=== PATIENT | male | born 1945 | race Caucasian/White ===

== ENCOUNTER 2016-06-12 19:26 | Inpatient (IN) | payer MEDICARE ==
[~2016-06-12] VITALS: Ht 179.1 cm; Wt 51.3 kg
[2016-06-12 21:59] VITALS: BP 104/54; PULSE 88; RESP 24; O2SAT 98
[2016-06-12] MEDS ORDERED: Alum-Mag Hydrox-Simeth 30 mL Suspension PO PRN (22:15)
[2016-06-12] MEDS ORDERED: Ondansetron 2 mg/mL 2 mL Inj IVPUSH PRN (22:15)
[2016-06-12] MEDS ORDERED: Polyethylene Glycol (PEG) 17 Gm Powder PO PRN (22:15)
--- NOTE | 2016-06-12 22:38 | NUR ---
admit note/med rec Pt is admitted to room 3008 around 2119 from [facility] transferred via EMS. Pt is A&Ox3, c/o slight tenderness when his R side was touched; site of his healed shingles. c/o feeling weak and dizzy but better; 2PA to transfer him from [facility] to bed. malnourished and cachectic. last BM was "long time ago, haven't eaten because unable to get food". abdomen is firm and slightly distended. Pt is oriented to room and plan of care; he verbalized understanding. Pt doesn't take any medications Addendum: 06/13/16 at 0555 by HUSSEIN MOORE RN able to tolerate general diet w/o N/V. using urinal in bed. bed alarm on for safety. Hourly rounding. Dr. Smalls was notified of critical lactic levels. 1L NS bolus given.
[2016-06-12 22:47] LABS: BASOPHILS % (AUTO) 0 % (0-3); EOSINOPHILS % (AUTO) 0 % (0-5); MONOCYTES % (AUTO) 6.1 % (4-12); Mean Corpuscular Hemoglobin 21.6 pg (27.0-35.0); Mean Corpuscular Volume 69.2 fL (81-100); NEUTROPHILS % (AUTO) 89.4 % (40-74); Platelet Count 369 bil/L (150-400)
--- NOTE | 2016-06-12 23:56 | PCM.HPMED ---
Subjective Date of Service Jun 12, 2016 Primary Provider: Admitting Physician: Alexys Kang MD Primary Care Physician: Angelita Attending Physician: Alexys Kang MD Admit Status: Direct Admit (from [facility]), Remote Telemetry Chief Complaint: Weakness, dizziness, unintentional weight loss History of Present Illness: Mr. Francis is an extremely pleasant 70-year-old gentleman with a history of tobacco use presented to [facility] via EMS for increasing weakness, dizziness, decreased appetite, and unintentional weight loss. He was found to have an elevated lactic acid, and abnormal findings of hepatic lesions via CT scan. He was transferred to [facility] 06/12/2016 for evaluation and treatment of suspected suspected sepsis, and hepatic malignancy with unknown primary, in addition to his weakness, dizziness, and other constitutional symptoms that are likely related to the finding of his abnormal hepatic imaging. Hospital day 1 Mr. Francis states that he has not received routine medical care in many years, and is unaware of any current medical conditions that he may have. He states he is aware of the abnormal hepatic findings are seen at [facility]. He admits to ongoing tobacco use, of which, he rolls his own cigarettes. He denies any chronic or daily alcohol use, and denies any other substance use. He states that over the recent weeks to couple of months, he has experienced an unintentional weight loss of greater than 30 pounds. He denies any fever or chills, but does report extreme weakness, dizziness, and daily hemoptysis. He states the hemoptysis has been present for the most recent 3 or so years, and it does occur throughout the day, but in small amounts. He describes it as very scant. He denies any associated abdominal pain, diarrhea, constipation, dysuria, hematuria; he does admit to occasional blood in his stool, but denies any antonina blood. He has never had a colonoscopy that he recalls. Based on documentation received from [facility], patient had a lactic acid level of 10, based on the reference range of 0.5-2.2. Lipase was 16, he was noted to be tachycardic with rates between 100-120, initial hemoglobin 9.9, hematocrit 32.1. He was thought to be septic at time of evaluation at [facility], and was given ciprofloxacin, Zosyn, and vancomycin. CT completed at their facility revealed multiple hepatic lesions and hepatomegaly. This report is placed in patient's chart on the floor. He was transferred and arrived to [facility] in stable condition. Review of Systems: Complete ROS obtained; pertinent positives and negatives as noted in history of present illness Allergies Coded Allergies: No Known Allergies (Unverified , 06/12/16) Home Medications Patient denies any home medications, including prescribed or [id number] PMH Patient is unaware of any medical conditions he has; patient has poor outpatient follow-up No known medical conditions that time of admission other than findings from [facility] General Surgical History Denies any history of medical interventions Family History States his mother lived to be elderly age and from what he believed to be natural causes He is unaware of any family history of cancers other than his father whom he believed lung cancer Social History Occupation: retired Hx Alcohol Use: Yes ("beer once in a while 4 months ago"; not a chronic/daily alcohol user) Hx Substance Use: No Hx Tobacco Use: Yes Smoking Status: Current Every Day Smoker (rolls his own cigarettes) Living Arrangement: Alone (independent, local) Exam Vital Signs Vital Sign - Last Date Time Temp Pulse Resp B/P Pulse Ox O2 Delivery O2 Flow Rate FiO2 06/12/16 21:59 36.4 88 24 104/54 98 Room Air Exam General: Frail, cachectic appearing gentleman in no acute distress HEENT: Atraumatic, temporal wasting quite evident, sunken eyes, mucous membranes moist, conjunctival pallor noted Neck: Full range of motion without pain chin to chest, no palpable lymphadenopathy Chest: Frail, rib prominence Cardiac: Tachycardic at time of examination with estimated 100 bpm, no murmurs appreciated Respiratory: Decreased airflow all eng, but without wheezes or coarse sounds appreciated Abdomen: Nondistended, remarkable hepatomegaly appreciated Skin: Healing zoster outbreak of right abdomen along T10 approximate distribution non-erythematous no active lesions; remainder skin warm and dry Extremities: Quite thin, with muscle wasting seen within lower extremities and upper extremities Neuro: Cranial nerves II through XII grossly intact, facial expressions equal and symmetric, speech without slurring Psych: Appropriate mood, affect, and responses to questioning; insight and judgment superficially appear questionable, but patient seemed to be at ease with knowing that he may potentially have a malignancy that is widespread Lab and Diagnostics Result Diagram: 06/12/16223906/12/162239 Assessment & Plan Mr. Francis is an extremely pleasant 70-year-old gentleman with an unknown medical history and a history of tobacco use, that presented to [facility] via EMS for increasing weakness, dizziness, decreased appetite, and unintentional weight loss. He was found to have an elevated lactic acid, and abnormal findings of hepatic lesions via CT scan. He was transferred to [facility] for evaluation and treatment of suspected sepsis, and hepatic malignancy with unknown primary, in addition to his weakness, dizziness, and other constitutional symptoms that are likely related to the finding of his abnormal hepatic imaging. Hospital day 1 Suspected sepsis, acute, present on admission. Under evaluation - Transfer from [facility]; lactic acid 10, heart rate above 100, white count 22.4 - Admit labs: WBC 20.4, lactic acid 4.3; stable vitals with pulse 88 - Treat underlying cause: Suspected infection vs malignancy Multiple hepatic lesions noted on imaging, chronicity unknown, present on admission. Under evaluation - CT from [facility] indicates hepatomegaly with multiple hepatic lesions; report place in chart; palpable on physical examination - Patient is aware that malignancy is on the differential - AFP, cryoglobulin, acute hepatitis panel, HIV ordered and pending - No additional scans ordered at this time - Consideration of GI consultation/and-or oncology and-or palliative care based on lab results and imaging - No consultations or additional scans ordered this time; will await preliminary laboratory results - Uric acid crystals seen in UA, with moderate occult blood Elevated lactic acid, acute, present on admission. Under evaluation - Would be reports lactic acid greater than 10 - Repeat value on admit: 4.3 - DDx: Malignancy, infection; no kidney disease noted at time of admission - Treat underlying cause - Continue fluid resuscitation - Trend Anemia, chronicity unknown, present on admission. Monitor - [facility] labs: Hemoglobin 9.9, hematocrit 32.1 - Admit labs: Hemoglobin 8.0, hematocrit 25.6 - Reduction may be secondary to fluid resuscitation - Holding heparin for prophylaxis at this time secondary to possible bleed - Continue to monitor - Consideration for increased coagulopathy secondary to potential underlying malignancy - We will defer to day team to base decision on anticoagulation for DVT prophylaxis after hemoglobin trending completed Leukocytosis, acute, present on admission. Under evaluation - [place] lab: 22.4 - Admit lab: 20.4 - DDx: Infection, malignancy, stress secondary to weight loss; no reported recent use of steroids - Treat possible underlying etiologies - Trend Hemoptysis, chronic. Presumed stable - Patient reports 3 year history of slight hemoptysis, occurring daily, but scant, in the setting of daily tobacco use - Likely secondary to tobacco use, but may also be secondary to undiagnosed malignancy - Quantiferon ordered to rule out TB - CXR in am - Consider additional scanning/imaging to identify any potential sites of malignancy, such as primary - No additional scans ordered at this time Unintentional weight loss, acute, present on admission. Ongoing - Patient reports unintentional weight loss greater than 30 pounds within recent weeks - Likely secondary to reported decreased appetite in the setting of possible malignancy - Likely contributing to presenting symptoms of weakness and dizziness - Dietary consultation as noted - Consider Marinol Severe protein calorie malnutrition, chronic. Ongoing - On admit: BMI 16 - Patient reports recent weight loss of 30 pounds within recent weeks - Patient reports significant decrease in appetite - Dietary consult placed - Consider palliative care consultation based on imaging and lab/tumor markers Tobacco use, chronic. Ongoing - Patient states he has smoked much of his life, and currently rolls his own cigarettes - Nicotine patch daily - DVT: SCDs; monitoring hemoglobin at this time - GI: PPI - Diet: General with dietary consultation - PRN bowel/fever/antiemetic/pain - CODE STATUS: DNR/DNI Patient status: Due to severity of presenting symptoms, risk of adverse events, and likely course of care, anticipated length of stay is greater than 2 midnights; patient admitted as inpatient status Pain Evaluation: Adequate Pain Control GI Prophylaxis: Proton Pump Inhibitor VTE Prophylaxis: SCDs Resuscitation Status: DNR/DNI:Do Not Resuscitate/Intubate Attending Statement The patient was seen and examined together with house staff on 06/13/2016 and I agree with the history, exam and plan as outlined in the note above. Summer Smalls DO Jun 12, 2016 23:56 Iliana Shannon DO June 23, 2016 05:30
[2016-06-13] VITALS (8 sets, daily range): BP systolic 103–127; BP diastolic 50–71; PULSE 68–91; RESP 22–24; O2SAT 94–97
[2016-06-13] MEDS: 0.9% Sodium Chloride 1,000 ML IV SCH ×4 (00:55→23:16)
[2016-06-13 01:56] LABS: APPEARANCE,URINE CLEAR (CLEAR,HAZY); COLOR,URINE YELLOW (YELLOW); OCCULT BLOOD,URINE MODERATE (NEGATIVE)
[2016-06-13] MEDS ORDERED: 0.9% Sodium Chloride 1,000 ML IV ONE (03:00)
--- NOTE | 2016-06-13 03:14 | PCM.CONPHA ---
Subjective Date of Service: Jun 13, 2016 Requesting Provider: Summer Smalls DO Weakness, dizziness, unintentional weight loss Reason for Pharmacy Consult: Vancomycin Dosing Objective Vital Signs Date Time Temp Pulse Resp B/P Pulse Ox O2 Delivery O2 Flow Rate FiO2 06/13/16 01:18 36.5 83 24 103/50 97 Room Air 06/12/16 21:59 36.4 88 24 104/54 98 Room Air Weight (Kilograms): 51.300 Height (Feet): 5 Height (Inches): 10.50 Test 06/12/16 22:40 06/13/16 01:35 06/13/16 01:55 White Blood Count 20.4th/mm3 (3.8-10.1) Red Blood Count 3.70mil/mm3 (4.40-5.80) Hemoglobin 8.0g/dL (13.8-17.2) Hematocrit 25.6% (41.0-50.0) Mean Corpuscular Volume 69.2fL (81-100) Mean Corpuscular Hemoglobin 21.6pg (27.0-35.0) Mean Corpuscular Hemoglobin Concent 31.3% (32.0-37.0) Red Cell Distribution Width 16.3% (12.3-15.4) Platelet Count 369bil/L (150-400) Neutrophils (%) (Auto) 89.4% (40-74) Lymphocytes (%) (Auto) 4.0% (14-46) Monocytes (%) (Auto) 6.1% (4-12) Eosinophils (%) (Auto) 0% (0-5) Basophils (%) (Auto) 0% (0-3) Sodium Level 133mEq/L (134-144) Potassium Level 3.9mEq/L (3.5-5.2) Chloride Level 95mEq/L (97-108) Carbon Dioxide Level 19mmol/L (18-29) Blood Urea Nitrogen 25mg/dL (8-27) Creatinine 0.94mg/dL (0.76-1.27) Estimat Glomerular Filtration Rate 84mL/min (>59) Glucose Level 86mg/dL (60-99) Calcium Level 7.6mg/dL (8.5-10.1) Urine Color Yellow (YELLOW) Urine Appearance Clear (CLEAR,HAZY) Urine pH 5.0 (5.0-8.0) Urine Specific [place] 1.020 (1.003-1.035) Urine Protein Tracemg/dL (NEG,TRACE) Urine Glucose (UA) Negativemg/dL (NEGATIVE) Urine Ketones Tracemg/dL (NEGATIVE) Urine Occult Blood Moderate (NEGATIVE) Urine Nitrite Negative (NEGATIVE) Urine Bilirubin Negative (NEGATIVE) Urine Urobilinogen 1.0mg/dL (NORMAL) Urine Leukocyte Esterase Negative (NEGATIVE) Urine RBC 0-2/hpf (0-2) Urine WBC 0-5/hpf (0-5) Urine Epithelial Cells Occasional/hpf (NONE-MOD) Urine Crystals Uric acid crystals (NONE Urine Bacteria Few/hpf (NONE-FEW) Urine Hyaline Casts None/lpf (NONE) Urine Granular Casts Rare (NONE SEEN) Urine Waxy Casts None seen (NONE SEEN) Urine Red Blood Cell Casts None seen (NONE SEEN) Urine White Blood Cell Casts None seen (NONE SEEN) Urine Mucus None seen (None Seen) Urine Trichomonas None seen (NONE SEEN) Urine Yeast None (NONE SEEN) Urinalysis Comment None Urine Culture Reflexed Not indicated Lactic Acid Level 4.9mmol/L (0.4-2.0) Assessment/Plan Assessment/Plan A: * Vancomycin dosing for 70 y/o man with suspected sepsis * He was transferred from [facility] where he received ciprofloxacin 400 mg @1720, Zosyn 4500 mg @1703, and vancomycin 1000 mg @1756 * He is being continued on Zosyn and vancomycin * Estimated CrCl for this patient is 53 mL/min (Cockcroft & Gault) * Estimated vancomycin half-life 14 hours and estimated Vd is 36 liters P: * Starting vancomycin 500 mg IV every 12 hours * Target a vancomycin trough range of 15 - 20 mcg/mL * Drawing a trough level prior to the fourth dose Thank you. Pharmacy will continue to follow. Ayesha Gutierrez, PharmD Ayesha Gutierrez Jun 13, 2016 03:14
[2016-06-13 05:50] LABS: BASOPHILS % (AUTO) 0.1 % (0-3); EOSINOPHILS % (AUTO) 0.1 % (0-5); MONOCYTES % (AUTO) 5.6 % (4-12); Mean Corpuscular Hemoglobin 21.9 pg (27.0-35.0); NEUTROPHILS % (AUTO) 87.9 % (40-74); Platelet Count 330 bil/L (150-400)
[2016-06-13 06:29] LABS: Magnesium 2.1 mg/dL (1.6-2.6); Phosphorus 2.4 mg/dL (2.5-4.9)
[2016-06-13] MEDS: Vancomycin Inj 500 MG in 0.9% Sodium Chloride 100 ML IV SCH ×2 (06:29→21:30)
[2016-06-13] MEDS ORDERED: Vancomycin Dose per Pharmacist XX SCH (08:30)
--- NOTE | 2016-06-13 08:37 | PCM.PNMED ---
Subjective Date of Service Jun 13, 2016 Exam Vital Signs Vital Sign - Last Date Time Temp Pulse Resp B/P Pulse Ox O2 Delivery O2 Flow Rate FiO2 06/13/16 06:30 36.5 85 24 118/70 96 Room Air Lab and Diagnostics o/n admission hemotpysis x 3 months, wt loss, liver masses, Cr 1.4, IV contrast at [facility], 125cc/hr NS, tolerated diet, he used DMSO for shingles right T 10 2 weeks ago, ongoing pain, unclear if hemoptypsis is from chronic left nares epistaxix, poor eating, generalized weakness/fatigue on RA NAD A and O x 3 no injected eyes, eating breakfast CTAB RRR right chest wall w/ mild peeling superficial skin, no rash TORREZ no edema Result Diagram: 06/13/1652906/13/16529 Assessment & Plan Mr. Francis is an extremely pleasant 70-year-old gentleman with an unknown medical history and a history of tobacco use, that presented to [facility] via EMS for increasing weakness, dizziness, decreased appetite, and unintentional weight loss. He was found to have an elevated lactic acid, and abnormal findings of hepatic lesions via CT scan. He was transferred to [facility] for evaluation and treatment of suspected sepsis, and hepatic malignancy with unknown primary, in addition to his weakness, dizziness, and other constitutional symptoms that are likely related to the finding of his abnormal hepatic imaging. Suspected sepsis, acute, present on admission. unlikely, SIRS likely, pending CT chest, neg TB int he past, no risk factors. stable - Transfer from [facility]; lactic acid 10, heart rate above 100, white count 22.4 - Admit labs: WBC 20.4, lactic acid 4.3; stable vitals with pulse 88 Multiple hepatic lesions noted on imaging, chronicity unknown, present on admission. Under evaluation - AFP, cryoglobulin, acute hepatitis panel, HIV ordered and pending - No additional scans ordered at this time - Consideration of GI consultation/and-or oncology and-or palliative care based on lab results and imaging - smoker, neg kidney findings on CT IV AP, abnormal right apex lung CXR, pending CT chest Elevated lactic acid, acute, present on admission. Under evaluation - Would be reports lactic acid greater than 10 - Repeat value on admit: 4.3 - DDx: Malignancy, infection; no kidney disease noted at time of admission - Continue fluid resuscitation microcytic Anemia, chronicity unknown, present on admission. Monitor --no fecal blood per patient, retic iron pending - [place] labs: Hemoglobin 9.9, hematocrit 32.1 - Admit labs: Hemoglobin 8.0, hematocrit 25.6 - Reduction may be secondary to fluid resuscitation - Holding heparin for prophylaxis at this time secondary to possible bleed - Consideration for increased coagulopathy secondary to potential underlying malignancy Hemoptysis, chronic vs epistaxis. - Quantiferon ordered to rule out TB Severe protein calorie malnutrition, chronic. Ongoing - On admit: BMI 16 - Patient reports recent weight loss of 30 pounds within recent weeks - Patient reports significant decrease in appetite - Dietary consult placed Tobacco use, chronic. Ongoing - Nicotine patch daily - DVT: SCDs; monitoring hemoglobin at this time - GI: PPI - Diet: General with dietary consultation - PRN bowel/fever/antiemetic/pain - CODE STATUS: DNR/DNI Patient status: Due to severity of presenting symptoms, risk of adverse events, and likely course of care, anticipated length of stay is greater than 2 midnights; patient admitted as inpatient status GI Prophylaxis: Proton Pump Inhibitor VTE Prophylaxis: SCDs VTE Mechanical Devices: Intermittant Pneumatic CD Resuscitation Status: DNR/DNI:Do Not Resuscitate/Intubate Alexys Kang MD Jun 13, 2016 08:09
[2016-06-13 08:55] LABS: Unsaturated Iron Binding 139.1 ug/dL
[2016-06-13] MEDS: Pantoprazole 40 mg ER24 Tablet PO SCH (09:07)
[2016-06-13] MEDS: Piperacillin-Tazo 3.375 Gm Inj 3.375 GM in Dextrose 5% Minibag Plus 50 ML IV SCH ×2 (09:07→16:58)
--- NOTE | 2016-06-13 13:06 | DRSVH ---
PROCEDURE: CT CHEST WITH CONTRAST ([id number]) INDICATIONS: 70 year-old male with liver metastases on recent CT scan, and tobacco use. TECHNIQUE: After the administration of intravenous contrast, 5 mm thick sections acquired from the pulmonary api debbie to the posterior costophrenic angles. 7 mm thick coronal and sagittal MIP reformats were acquire d. For radiation dose reduction, the following was used: automated exposure control, adjustment of mA and/or kV according to patient size. COMPARISON: Outside Film, CT, CT ABD PELVIS WO CON, 06/12/2016, 16:55. FINDINGS: Image quality: Excellent. Lungs and pleura: 2.1 x 1.3 cm lobulated right apical lung mass is present. There is linear lateral r ight upper lobe scarring. There is apical predominant centrilobular emphysema. On axial image 27, 3 mm nodule is present within the right lower lobe. On axial image 28, 3 mm nodule is also present with in the lateral left lower lobe, with eccentric calcification not typical for benign granuloma. Small bibasilar pleural effusions are present; no pneumothorax. Central and peripheral airways are patent and normal in caliber. Mediastinum: Heart size is normal, with trace anterior pericardial effusion. No mediastinal or dale r adenopathy by size criteria. Thoracic aorta and central pulmonary arteries are normal in size. Es ophagus is normal in caliber. No hiatal hernia. Bones and chest wall: No suspicious bony lesions. No vertebral body compression fractures. No axil maximino or supraclavicular adenopathy by size criteria. Thyroid gland is normal in size. Abdomen: Numerous variably sized hepatic hypoenhancing lesions are again noted, causing diffuse liver enlargement. No adrenal nodules. IMPRESSION: 1. 3.5 x 2.1 x 1.3 cm right apical lung mass may be consistent with primary bronchogenic carcinoma ve rsus pulmonary metastasis. 2. Additional scattered less than 5 mm indeterminate nodules in both lower lobes, possibly tiny metas tases versus post inflammatory residua. 3. Apical predominant centrilobular emphysema. 4. Small bibasilar mobile pleural effusions, possibly malignant. 5. Numerous hepatic metastases again noted, of uncertain primary neoplasm. Consider CT or ultrasound-guided liver biopsy for further evaluation. Dictated by: Stephon Poe M.D. on 06/13/2016 at 12:56 Approved by: Stephon Poe M.D. on 06/13/2016 at 13:05
--- NOTE | 2016-06-13 13:17 | NUR ---
Pt off floor for CT chest Transported via around 1250.
--- NOTE | 2016-06-13 15:59 | NUR ---
NUTRITION ASSESSMENT: ASSESS: 70 YO male admitted for sepsis, increased weakness, dizziness, multiple hepatic lesion, currently undergoing workup. Pt also reports decreased appetite with unintentional wt loss of 30 lbs over the past couple weeks. Pt is having CT currently. PMHx: Tobacco use. LABS: Reviewed. Glu 105, Ca 7.5. No alb/PAB available. MEDS: Reviewed. GI: NO BM reported. yet. CURRENT WT: 51.3 kg. UBW: 65 kg. IBW: 76.8 kg. If 30 lbs wt loss accurate, pt with 21% body wt lost. DIET: General. PO intake 100% x 1 meal. EST. NEEDS (Wt GAIN): 9465-2600 kcals (30-40 kcals/kg BW), 95-115 g protein (1.2-1.5 g/kg IBW) NUTRITION DIAGNOSIS: 1.) Unintentional weight loss related to decreased appetite as evidenced by reported significant (21%) body weight lost in a couple weeks. NUTRITION INTERVENTION: 1.) Will add ensure BID between meals to encourage adequate po intake to support wt gain. MONITOR / EVAL: PO intake, weights, labs, nutritional status. Follow per high nutritional risk guidelines.
[2016-06-13] MEDS ORDERED: Vancomycin Inj 1,000 MG in IV Premix 1 EACH IV SCH (18:00)
--- NOTE | 2016-06-13 19:28 | NUR ---
Pain Pt reported sharp abdomen pain of 4/10 on R lateral side. Pain spikes to 8/10 with coughing or deep breathing. Pain is r/t healing of past shingles. MD ordered Gabapentin TID for pain. Pt reports pain is decreased.
[2016-06-14] VITALS (7 sets, daily range): BP systolic 79–123; BP diastolic 51–66; PULSE 73–124; RESP 24–28; O2SAT 77–95
[2016-06-14] MEDS: Piperacillin-Tazo 3.375 Gm Inj 3.375 GM in Dextrose 5% Minibag Plus 50 ML IV SCH ×2 (00:44→09:34)
[2016-06-14] MEDS: 0.9% Sodium Chloride 1,000 ML IV SCH ×2 (00:47→07:32)
--- NOTE | 2016-06-14 00:51 | ABG ---
DateTimeAnalyzed 00:48:00 -_ pH ____7.424 - 7.350 7.450 pCO2 ___31.8__ -mmHg 35.0 45.0 pO2 ___75.9__ -mmHg 69.0 116 HCO3- ___20.4__ -mmol/L 22.0 26.0 ABE ___-3.0__ -mmol/L -2.0 2.0 tHb ____8.4__ -g/dL O2Hb ___93.8__ -% COHb ____1.2__ -% MetHb ____1.0__ -% sO2 ___95.9__ -% 25.0 FIO2 ___50.0__ -% Drawn By AF - Date/Time Notified____ 00:51:00 -_ Notified By AF - B 757 -mmHg tO2 ___11.2__ -Vol% OrderingPhysicianInitials mf - Ghassan test _Positive -
--- NOTE | 2016-06-14 01:11 | PCM.PNMED ---
Subjective Date of Service Jun 14, 2016 Subjective Patient noted to have increasing oxygen demand and tachypnea. He also has persistent elevated Lactic acidosis despite antibiotics and fluids Assessment Likely advanced Sepsis or fluid overload from fluid resuscitations Plan Transfer to [facility] ABG check (note patient is DNR/DNI) consider BIPAP Increasing fluids to NS @ 150 cc/hr Chepe Lynch MD Jun 14, 2016 01:10
--- NOTE | 2016-06-14 01:37 | NUR ---
TRANSFER TO 2013 During routine VS, pt on RA, oxygen saturations 70s, whereas pt was on RA prior w/ good saturations. Pt placed on 5L oxymask to maintain mid 90s. Pt titrated down to 4L, at time of transfer, low 90s, as pt is a smoker, no known diagnosis of COPD. Pt denies any SOB or change in how he feels. RR high 20s. Lactic acid levels have been monitored frequently, most recent drawn at 0020 was 6.5. MD had been notified of change in VS, increasing lactic acid levels, which initiated transfer to 2nd floor. Pt transferred to room 2013 approx 0130, via hospital bed, portable oxygen take and IVF infusing. Pt remained alert and oriented. All pt belongings in room taken w/ pt. Pts chart and drawer medication taken down.
--- NOTE | 2016-06-14 02:00 | NUR ---
Transfer to [facility] Room 2012 Pt arrived to room 2012 in pt's bed from upstairs at approximately 0200. Pt was on 4L oxymask with SpO2 in low 90s and NS running at 100ml/hr. Pt was AOx3 and TORREZ and has no c/o pain at this time. Pt was put on a continuous pulse ox to monitor pt's SpO2 and to titrate supplemental O2 PRN. Pt is currently having a lactic acid drawn Q2H until in the normal range. Last lactic acid was scheduled at 0500 and still awaiting lab results.
[2016-06-14 02:10] LABS: Hepatitis A Antibody IgM Negative (Negative); Hepatitis B Core Antibody IgM Negative (Negative)
[2016-06-14] MEDS ORDERED: Vancomycin Serum Trough XX ONE (05:00)
[2016-06-14 05:30] LABS: BASOPHILS % (AUTO) 0.1 % (0-3); EOSINOPHILS % (AUTO) 0 % (0-5); MONOCYTES % (AUTO) 3.6 % (4-12); Mean Corpuscular Hemoglobin 21.5 pg (27.0-35.0); Mean Corpuscular Volume 69.4 fL (81-100); NEUTROPHILS % (AUTO) 94.2 % (40-74); Platelet Count 190 bil/L (150-400)
[2016-06-14 05:47] LABS: INR 1.19 ratio
[2016-06-14] MEDS ORDERED: Vancomycin Inj 750 MG in 0.9% Sodium Chloride 250 ML IV SCH (06:35)
--- NOTE | 2016-06-14 07:00 | PCM.PHAPRO ---
Progress Date of Service: Jun 14, 2016 Vancomycin dosing by pharmacy for 70 y/o man with suspected sepsis O: * The patient was receiving vancomycin 500 mg IV every 12 hours * Vancomycin level of 7.3 mcg/mL prior to the fourth dose * SCr of 0.76 mg/dL today * Blood cultures pending * MRSA nasal screen negative A: * The vancomycin trough level is below target * SCr has been decreasing and the patient is clearing vancomycin more quickly than originally anticipated P: * Increase vancomycin dose to 750 mg IV every 12 hours * Continue targeting a trough range of 15 - 20 mcg/mL * Drawing another trough level after 3 doses Thank you. Pharmacy will continue to follow. Ayesha Gutierrez, PharmD Ayesha Gutierrez Jun 14, 2016 07:00
--- NOTE | 2016-06-14 07:30 | NUR ---
SPO2 Pt 6 L oxymask SPO2 86% during shift change, increased O2 to 11L oxymask SPO2 93%. Notified
[2016-06-14] MEDS ORDERED: Albuterol-Ipratropium 3 mL Inhalation Solution NEB SCH (08:30)
[2016-06-14] MEDS ORDERED: Furosemide 10 mg/mL 4 mL Inj IVPUSH ONE (08:45)
--- NOTE | 2016-06-14 09:35 | DRSVH ---
PROCEDURE: X-RAY CHEST ONE VIEW, PORTABLE ([id number]) INDICATIONS: hypoxia TECHNIQUE: One view of the chest was acquired. COMPARISON: [facility], CT, CT CHEST W CON, 06/13/2016, 12:38. FINDINGS: Surgical changes and devices: None. Lungs and pleura: No pleural effusions or pneumothorax. Lungs are abnormal with interstitial promin ence and pulmonary hyperexpansion consistent with COPD and long-standing smoking history. A mass les ion identified at the right apex is relatively poorly visualized by this study. It was seen by CT sc anning one day ago.. Mediastinum: Mediastinal contours appear normal. Heart size is normal. Bones and chest wall: No suspicious bony lesions. Overlying soft tissues appear unremarkable. IMPRESSION: COPD, chronic interstitial prominence, long-standing smoking history suspected. A right apex lung mass seen by CT scanning yesterday is quite poorly visualized by this examination due to ov erlap of multiple osseous margins in that area. Please note that small bilateral pleural effusions w ere seen yesterday by CT scanning and not accurately detected by this study today. Dictated by: Jerrod Alcazar M.D. on 06/14/2016 at 9:31 Approved by: Jerrod Alcazar M.D. on 06/14/2016 at 9:34
[2016-06-14] MEDS: Pantoprazole 40 mg ER24 Tablet PO SCH (10:09)
--- NOTE | 2016-06-14 11:39 | NUR ---
Social Work: Note Per EMR review, pt is a 70 year old male admitted for sepsis. Pt is Medicare insurance with [employer] benefits. Pt's listed NOK is a friend, True Calvillo. Pt has . No family listed. Team is attempting to notify pt's NOK. Pt's DD214 ( discharge paperwork) were in belongs. POWER MACHINE OPERATOR spoke with the [facility] who states that this paperwork will be needed by the home and to ensure that it is sent with the pt's belongings. POWER MACHINE OPERATOR notified charge and bedside RN of this and made copies for pt's chart. No further social work needs identified at this time; POWER MACHINE OPERATOR will assist further if requested by team. NAN Godwin
--- NOTE | 2016-06-14 11:40 | NUR ---
Status Pt AOx3 this morning sharing about his father, stated he has no family now, noted on white board name of friend and phone number. Administered last medication at 1010, SPO2 93% 11L oxymask, pt stated he wasn't hungry for breakfast. Pt reading book. At approximately 1045 technical support specialist reported pt HR dropped from 113 to 50. Ran to pt room. Pt unresponsive, no pulse. Pt DNR/DNI. Pt at 1050. MD in room.
--- NOTE | 2016-06-14 18:03 | PCM.DC.MEX ---
Discharge Summary Date of Service Jun 14, 2016 Dates of Hospitalization Date of Hospital Admission Jun 12, 2016 at 21:43 Date of Expiration: Jun 14, 2016 Time of Expiration: 10:50 Providers: Admitting Physician: Alexys Kang MD Primary Care Physician: Angelita Attending Physician: Alexys Kang MD Diagnosis at Time of Cardiac arrest; acute respiratory failure with hypoxia; sepsis likely secondary to pneumonia; Metastatic carcinoma uncertain origin Procedures XRay, CTs & MRIs PROCEDURE: CT CHEST WITH CONTRAST ([id number]) IMPRESSION: 1. 3.5 x 2.1 x 1.3 cm right apical lung mass may be consistent with primary bronchogenic carcinoma versus pulmonary metastasis. 2. Additional scattered less than 5 mm indeterminate nodules in both lower lobes , possibly tiny metastases versus post inflammatory residua. 3. Apical predominant centrilobular emphysema. 4. Small bibasilar mobile pleural effusions, possibly malignant. 5. Numerous hepatic metastases again noted, of uncertain primary neoplasm. PROCEDURE: X-RAY CHEST ONE VIEW, PORTABLE ([id number]) IMPRESSION: COPD, chronic interstitial prominence, long-standing smoking history suspected. A right apex lung mass seen by CT scanning yesterday is quite poorly visualized by this examination due to overlap of multiple osseous margins in that area. Please note that small bilateral pleural effusions were seen yesterday by CT scanning and not accurately detected by this study today. Dictated by: Jerrod Alcazar M.D. on 06/14/2016 at 9:31 . Other Diagnostics DateTimeAnalyzed 00:48:00 -_ pH ____7.424 - 7.350 7.450 pCO2 ___31.8__ -mmHg 35.0 45.0 pO2 ___75.9__ -mmHg 69.0 116 HCO3- ___20.4__ -mmol/L 22.0 26.0 ABE ___-3.0__ -mmol/L -2.0 2.0 tHb ____8.4__ -g/dL O2Hb ___93.8__ -% COHb ____1.2__ -% MetHb ____1.0__ -% sO2 ___95.9__ -% 25.0 FIO2 ___50.0__ -% . Brief History 70-year-old gentleman with a history of tobacco use presented to [facility] via EMS for increasing weakness, dizziness, decreased appetite, and unintentional weight loss. He was found to have an elevated lactic acid, and abnormal findings of hepatic lesions via CT scan. He was transferred to [facility] for evaluation and treatment of suspected suspected sepsis, and hepatic malignancy with unknown primary, in addition to his weakness, dizziness, and other constitutional symptoms that are likely related to the finding of his abnormal hepatic imaging. He states that over the recent weeks to couple of months, he has experienced an unintentional weight loss of greater than 30 pounds. He denies any fever or chills, but does report extreme weakness, dizziness, and daily hemoptysis. He states the hemoptysis has been present for the most recent 3 or so years, and it does occur throughout the day, but in small amounts. He describes it as very scant. Based on documentation received from [facility], patient had a lactic acid level of 10, based on the reference range of 0.5-2.2. Lipase was 16, he was noted to be tachycardic with rates between 100-120, initial hemoglobin 9.9, hematocrit 32.1. He was thought to be septic at time of evaluation at [facility], and was given ciprofloxacin, Zosyn, and vancomycin. CT completed at their facility revealed multiple hepatic lesions and hepatomegaly. He was transferred and arrived to [facility] with tachycardia (113) tachypnea (28) and acute hypoxic respiratory failure (SaO2 92%, 4 L). Blood pressure was 123/61 on admission. Treatment for acute sepsis with broad-spectrum antibiotics and aggressive fluid resuscitation was continued. Approximately 24 hours after admission he expected experienced worsening hypoxia. Approximately 9 hours after his respiratory deterioration, blood pressure dropped to 79/51. He was monitored on telemetry and noted to develop spontaneous bradycardia associated with hypotension. His CODE STATUS was DO NOT RESUSCITATE/DO NOT INTUBATE. He was found pulseless and apneic shortly after the onset of severe bradycardia. Exam Test 06/13/16 01:35 06/13/16 05:30 06/13/16 05:40 06/14/16 05:15 Urine Color Yellow (YELLOW) Urine Appearance Clear (CLEAR,HAZY) Urine pH 5.0 (5.0-8.0) Urine Specific [place] 1.020 (1.003-1.035) Urine Protein Tracemg/dL (NEG,TRACE) Urine Glucose (UA) Negativemg/dL (NEGATIVE) Urine Ketones Tracemg/dL (NEGATIVE) Urine Occult Blood Moderate (NEGATIVE) Urine Nitrite Negative (NEGATIVE) Urine Bilirubin Negative (NEGATIVE) Urine Urobilinogen 1.0mg/dL (NORMAL) Urine Leukocyte Esterase Negative (NEGATIVE) Urine RBC 0-2/hpf (0-2) Urine WBC 0-5/hpf (0-5) Urine Epithelial Cells Occasional/hpf (NONE-MOD) Urine Crystals Uric acid crystals (NONE Urine Bacteria Few/hpf (NONE-FEW) Urine Hyaline Casts None/lpf (NONE) Urine Granular Casts Rare (NONE SEEN) Urine Waxy Casts None seen (NONE SEEN) Urine Red Blood Cell Casts None seen (NONE SEEN) Urine White Blood Cell Casts None seen (NONE SEEN) Urine Mucus None seen (None Seen) Urine Trichomonas None seen (NONE SEEN) Urine Yeast None (NONE SEEN) Urinalysis Comment None Urine Culture Reflexed Not indicated Reticulocyte Count,Calculated 1.4% (0.6-2.6) Iron Level 9ug/dL (35-150) Total Iron Binding Capacity 148ug/dL (250-450) Percent Iron Saturation 6%sat (15-50) Unsaturated Iron Binding 139.1ug/dL Magnesium Level 2.1mg/dL (1.6-2.6) Tumor Marker Alpha Fetoprotein 3.3ng/mL (0.0-8.3) Thyroid Stimulating Hormone (TSH) 2.200uIU/mL (0.450-4.500) Free Thyroxine 1.07ng/dL (0.82-1.77) Hepatitis A IgM Antibody Negative (Negative) Hepatitis B Surface Antigen Negative (Negative) Hepatitis B Core IgM Antibody Negative (Negative) Hepatitis C Antibody <0.1s/co ratio (0.0-0.9) Hepatitis C Comment Comment (.) HIV (1&2) Ag and Ab, 4th Generation Non reactive (Non Reactive) White Blood Count 27.6th/mm3 (3.8-10.1) Red Blood Count 3.96mil/mm3 (4.40-5.80) Hemoglobin 8.5g/dL (13.8-17.2) Hematocrit 27.5% (41.0-50.0) Mean Corpuscular Volume 69.4fL (81-100) Mean Corpuscular Hemoglobin 21.5pg (27.0-35.0) Mean Corpuscular Hemoglobin Concent 30.9% (32.0-37.0) Red Cell Distribution Width 17.2% (12.3-15.4) Platelet Count 190bil/L (150-400) Neutrophils (%) (Auto) 94.2% (40-74) Lymphocytes (%) (Auto) 1.6% (14-46) Monocytes (%) (Auto) 3.6% (4-12) Eosinophils (%) (Auto) 0% (0-5) Basophils (%) (Auto) 0.1% (0-3) Prothrombin Time 12.8sec (8.1-12.5) Prothromb Time International Ratio 1.19ratio Activated Partial Thromboplast Time 30.2sec (22.8-33.0) Sodium Level 134mEq/L (134-144) Potassium Level 3.5mEq/L (3.5-5.2) Chloride Level 99mEq/L (97-108) Carbon Dioxide Level 19mmol/L (18-29) Blood Urea Nitrogen 15mg/dL (8-27) Creatinine 0.76mg/dL (0.76-1.27) Estimat Glomerular Filtration Rate 108mL/min (>59) Glucose Level 104mg/dL (60-99) Calcium Level 7.8mg/dL (8.5-10.1) Phosphorus Level 2.0mg/dL (2.5-4.9) Total Bilirubin 2.6mg/dL (0.0-1.2) Aspartate Amino Transf (AST/SGOT) 817U/L (0-50) Alanine Aminotransferase (ALT/SGPT) 177U/L (0-44) Alkaline Phosphatase 415U/L (25-160) Total Protein 5.1g/dL (6.4-8.4) Albumin 2.1g/dL (3.4-5.0) Vancomycin Level Trough 7.3mcg/mL Test 06/14/16 10:25 Lactic Acid Level 8.5mmol/L (0.4-2.0) Time spent 40 minutes Jason Melo MD Jun 14, 2016 18:03 2.6mg/dL (0.0-1.2) Aspartate Amino Transf (AST/SGOT) 817U/L (0-50) Alanine Aminotransferase (ALT/SGPT) 177U/L (0-44) Alkaline Phosphatase 415U/L (25-160) Total Protein 5.1g/dL (6.4-8.4) Albumin 2.1g/dL (3.4-5.0) Vancomycin Level Trough 7.3mcg/mL Test 06/14/16 10:25 Lactic Acid Level 8.5mmol/L (0.4-2.0) Jason Melo MD Jun 14, 2016 18:03
[2016-06-15] MEDS ORDERED: Vancomycin Serum Trough XX ONE (18:00)
== END 2016-06-14 10:50 | disposition expired | DRG 871 ==
LOC: MPC 21:43 → PCC 06-14 01:46
PROVIDERS: ADMIT Urology; ATTEND Urology
PROC: 4A033R1 Measurement of Arterial Saturation, Peripheral, Percutaneous Approach (ICD-10-PCS; principal; 2016-06-14)
DX: A41.9 Sepsis, unspecified organism (principal); E43 Unspecified severe protein-calorie malnutrition; J18.9 Pneumonia, unspecified organism; J96.01 Acute respiratory failure with hypoxia; Z68.1 Body mass index [BMI] 19.9 or less, adult; C22.9 Malignant neoplasm of liver, not specified as primary or secondary; R04.2 Hemoptysis; I46.9 Cardiac arrest, cause unspecified; F17.210 Nicotine dependence, cigarettes, uncomplicated; Z66 Do not resuscitate; D49.1 Neoplasm of unspecified behavior of respiratory system